=== PATIENT | male | born 1945 | race Two or more races ===

== ENCOUNTER 2019-04-11 12:35 | Emergency (ER) | payer OTHER ==
[~2019-04-11] VITALS: Ht 167.6 cm; Wt 69.9 kg
[2019-04-11 12:49] VITALS: Ht 167.6 cm; Wt 69.9 kg
[2019-04-11 17:27] LABS: CALCIUM 8.9 mg/dL (8.5-10.1); CARBON DIOXIDE 27.5 mmol/L (21-32); CHLORIDE SERUM 103 mmol/L (98-107); CREATININE SERUM 0.9 mg/dL (0.7-1.3); GLUCOSE SERUM 210 mg/dL (74-106); POTASSIUM SERUM 4.1 mmol/L (3.5-5.1); SODIUM SERUM 139 mmol/L (136-145)
[2019-04-11 17:32] LABS: BASOPHIL % 0.8 % (0-2)
[2019-04-11 17:36] LABS: PLATELET COUNT 630 x10^3mcL (130-400)
[2019-04-11 18:12] VITALS: BP 134/74
== END 2019-04-11 18:12 | disposition home or self-care (01) ==
LOC: ED 12:35
PROVIDERS: Emergency Medicine
DX: R42 Dizziness and giddiness (principal); E11.9 Type 2 diabetes mellitus without complications; Z76.0 Encounter for issue of repeat prescription
CPT/HCPCS: 36415